=== PATIENT | male | born 1985 | race Caucasian/White ===

== ENCOUNTER 2024-07-04 10:43 | Emergency (ER) | payer BC, OTHER ==
[2024-07-04] MEDS ORDERED: Acetaminophen 325 MG TAB ONE (11:01)
[2024-07-04 11:32] LABS: #Basophils 0.08 10x3/uL (0.0-0.2); #Eosinophils 0.82 10x3/uL (0.0-0.5); #Monocytes 0.89 10x3/uL (0.0-1.1); #Neutrophils 6.13 10x3/uL (1.5-8.4); %Basophils 0.7 % (0.0-2.0); %Eosinophils 7.7 % (0.0-6.0); %Lymphocytes 25.1 % (18.0-47.0); %Monocytes 8.3 % (0.0-10.0); %Neutrophils 57.5 % (40.0-75.0); Hematocrit 47.3 % (38.8-50.0); Hemoglobin 16.4 g/dL (13.5-17.5); Mean Corpuscular HGB CONC 34.7 g/dL (32.0-36.0); Mean Corpuscular Hemoglobin 31.4 pg (27.0-33.0); Mean Corpuscular Volume 90.6 fL (81.2-95.1); Mean Platelet Volume 9.7 fL (7.4-10.4); Platelet Count 270 10x3/uL (150-450); RBC Distribution Width 12.4 % (11.5-14.5); Red Blood Cell (RBC) Count 5.22 10x6/uL (4.32-5.72); White Blood Cell (WBC) Count 10.7 10x3/uL (3.5-10.5)
[2024-07-04 11:49] LABS: Troponin I Less than 0.010 ng/mL (< 0.028)
[2024-07-04 11:50] LABS: ALT (SGPT) 21 U/L (8-55); AST (SGOT) 20 U/L (5-34); Albumin 4.6 g/dL (3.5-5.0); Alkaline Phosphatase 89 U/L (40-110); Anion Gap 16 mmol/L (10-20); BUN (Urea Nitrogen) 6 mg/dL (8.9-20.6); Bilirubin, Total 0.7 mg/dL (0.2-1.2); Calc. Creatinine Clearance 0 mL/min (70-130); Carbon Dioxide 25 mmol/L (22-29); Chloride 105 mmol/L (98-107); Estimated GFR 114; Globulin 2.8 g/dL (2.4-3.5); Glucose 90 mg/dL (70-105); Lipase 16 U/L (8-78); Potassium 4.6 mmol/L (3.5-5.1); Protein, Total 7.4 g/dL (6.0-8.3); Sodium 141 mmol/L (136-145)
== END 2024-07-04 12:10 | disposition home or self-care (01) ==
LOC: CSHERS 10:43
DX: R07.89 Other chest pain (principal)
CPT/HCPCS: 71045; 80053; 83690; 84484; 85025; 93005